=== PATIENT | female | born 1985 | race Caucasian/White ===

== ENCOUNTER 2023-06-17 14:36 | Emergency (ER) | payer OTHER, SELFPAY ==
--- NOTE | ~2023-06-17 | CT_ITS ---
EXAMINATION: CT KNEE WITHOUT CONTRAST, RIGHT CLINICAL INFORMATION: Assess fracture COMPARISON: Radiographs the same day TECHNIQUE: Multiplanar multisequence CT scan of the right knee are multiplanar reconstructions. This CT examination was performed using dose optimization techniques as appropriate, variously including the following: *Automated exposure control *Adjustment of mA and/or kV according to patient size (this includes techniques or standardized protocols for targeted exams where dose is matched to indication/reason for exam; i.e. extremities or head) *Use of iterative reconstruction technique DLP: 148 mGy-cm FINDINGS: CT confirms the presence of joint effusion. In fact there is likely hemarthrosis on this supine exam. Patellofemoral joint intact. There is a avulsion-type fracture of the tibial spine and the lateral tibial plateau with minimal comminution and mild displacement. No fracture fragments seen within the joint space. No focal bony lesion and no other focal lesion. Minor patella spurring. CT/CT knee RT wo IV con IMPRESSION: Avulsion fracture of the tibial spine extending to the lateral tibial plateau as above. MRI is recommended to specifically assess the ACL and other soft tissue structures.
--- NOTE | ~2023-06-17 | XR_ITS ---
EXAMINATION: XR KNEE, RIGHT CLINICAL INFORMATION: Twisting injury COMPARISON: None available. TECHNIQUE: Four views of the right knee. FINDINGS: Joint effusion is present. There is a subtle deformity of the tibia extending from the lateral tibial spine to the lateral tibial plateau. This is suspicious for an avulsion type fracture presumed acute. No measurable displacement. No other deformity. XR/XR knee RT 3V IMPRESSION: Joint effusion. Suspect an avulsion type fracture of the tibia as above.
[2023-06-17 15:18] VITALS: BP 150/93; PULSE 103; RESP 19; TEMP 36.6; O2SAT 97; BMI 35.4
--- NOTE | 2023-06-17 15:20 | ED.LOWEXIN ---
HPI - Extremity Injury (Lower) General Chief Complaint: General Medical Stated Complaint: Right Knee pain Time Seen by Provider: 06/17/23 18:10 Source: patient and family Mode of arrival: wheelchair Limitations: no limitations History of Present Illness HPI Narrative: 38-year-old female previously healthy here with complaints of right knee pain after twisting injury last night. Patient denies any head strike or loss of consciousness. No AC therapy use. Patient denies any associated weakness, numbness or tingling of the extremity. Related Data Previous Rx's Medication Instructions Recorded ibuprofen 800 mg tablet 800 mg PO Q8H PRN pain #30 tabs 06/17/23 oxycodone 5 mg tablet 5 mg PO Q8H PRN pain #9 tabs 06/17/23 Allergies Allergy/AdvReac Type Severity Reaction Status Date / Time ketorolac [From Toradol] Allergy Swelling Verified 06/17/23 15:17 Review of Systems Review of Systems: Yes all other systems are reviewed and are negative Constitutional: Constitutional: Reports no additional constitutional complaints, Denies body ache(s), Denies chills, Denies fever(s), Denies headache(s) and Denies weakness Eyes: Eyes: Reports no additional eye complaints and Denies change in vision ENT: Reports system reviewed and no additional complaints, except as documented, Denies dizziness, Denies headache(s), Denies nasal congestion, Denies nasal discharge and Denies neck pain Cardiovascular: Cardiovascular: Reports no additional cardiovascular complaints, Denies chest pain, Denies leg edema and Denies dyspnea Respiratory: Respiratory: Reports no additional respiratory complaints, Denies cough and Denies dyspnea Gastrointestinal: Gastrointestinal: Reports no additional gastrointestinal complaints, Denies abdominal pain, Denies diarrhea, Denies nausea and Denies vomiting Genitourinary: Genitourinary: Reports no additional female genitourinary complaints and Denies urinary incontinence Musculoskeletal: Musculoskeletal: Reports no additional musculoskeletal complaints, Denies back pain, Reports arthralgias, Denies joint swelling, Denies neck pain, Denies numbness and Denies tingling Integumentary/Breasts: Skin/Breast: Reports system reviewed and no additional complaints, except as docu and Denies rash Neurologic: Reports system reviewed and no additional complaints, except as documented, Denies Abnormal speech present, Denies dizziness, Denies headache(s), Denies numbness, Denies tingling and Denies weakness PMFSH Past Medical History Attestation statement: The following information was validated with the patient. Source: old records reviewed and nursing notes reviewed Social History Social History Advance Directives: No Advance Directives Information Provided: No Physical Exam Vital Signs: Vital Signs: Last Vital Signs Temp 97.3 F 06/17/23 18:27 Pulse 106 H 06/17/23 18:27 Resp 18 06/17/23 18:27 BP 158/89 H 06/17/23 18:27 Pulse Ox 96 06/17/23 18:27 O2 Del Method Room Air 06/17/23 18:27 BMI result Body Mass Index 35.4 Const: General: cooperative, healthy appearing, comfortable and no acute distress Orientation/consciousness: patient oriented x3 Limitations: no limitations HEENT: Head: Yes normal to inspection Ears: hearing grossly normal bilaterally General nose exam: Normal external nose present Face and sinus: Yes normal facial exam Mouth: Normal oral and palatal mucosa present Throat: Yes posterior oropharynx normal Eyes: General: appearance normal, both eyes and all related structures Pupils: Equal, round and reactive pupils present Neck: Neck: Yes normal visual inspection Chest: Chest palpation & inspection: normal inspection of the chest Resp: Effort & Inspection: normal respiratory effort Auscultation: clear to auscultation bilaterally Cardio: Rate: regular rate Rhythm: regular rhythm Peripheral pulses: Peripheral pulses 2+ throughout GI: Inspection: Yes normal to inspection Palpation (GI): Soft to palpation and nontender Auscultation: normal bowel sounds Back/Spine/Pelvis: Thoracic/Lumbar Spine: thoracic and lumbar spine normal to inspection Skin: General skin exam: no rashes or lesions noted Neuro: General: patient oriented x3, no focal motor deficits and normal sensation to monofilament Cranial nerves: Yes Equal, round and reactive pupils present Cognition (Neuro): normal cognition Speech: No Abnormal speech present Gait exam (Neuro): Normal gait present Motor exam (neuro): 5/5 motor strength present throughout Extrem: Other: Pain on palpation over the proximal tibia and medial joint line with limited flexion due to pain. There is 2+ DP and PT pulses distally. Full active and passive range of motion of the ankle and foot. Normal distal sensation. General: Yes normal to inspection Course Course Course Narrative: This is a rapid medical exam. Defer additional HPI, ROS, PE to primary provider. [age] female who right knee pain after twisting injury. Will check x-rays. VSS Reevaluation(s) Reevaluation #1: 1730-x-ray is concerning for lateral tibial plateau fracture. Spoke to orthopedic (Erik) who recommended obtaining CT knee while patient is here in the emergency room. Medications Administered Discontinued Medications Generic Name Dose Route Start Last Admin Trade Name Prasad PRN Reason Stop Dose Admin Ibuprofen 800 mg 06/17/23 18:13 06/17/23 18:29 Ibuprofen 800 Mg Tablet PO 06/17/23 18:14 800 mg ONCE ONE Administration Medical Decision Making Medical Decision Making [facility] Narrative: 38-year-old female previously healthy here with complaints of right knee pain after twisting injury last night. Patient denies any head strike or loss of consciousness. No AC therapy use. Patient denies any associated weakness, numbness or tingling of the extremity. Pain on palpation over the proximal tibia and medial joint line with limited flexion due to pain. There is 2+ DP and PT pulses distally. Full active and passive range of motion of the ankle and foot. Normal distal sensation. Will obtain x-ray Differential Diagnosis Differential Diagnoses: The differential diagnosis associated with the presentation includes Fracture, contusion, sprain, strain, dislocation Low suspicion for vascular injury Admission/Observation Consideration of admission/observation: Escalation of care including admission/observation considered Low suspicion for vascular injury, complex fracture or dislocation requiring advanced imaging, urgent orthopedic consultation Consult Healthcare Provider Management of the patient was discussed with: [employer] Supervisor X-ray show concern for tibial plateau fracture. Spoke to Orthopedics who recommended CT of the knee while in the emergency room Lab Data [facility] Lab Attestation statement: I reviewed the patient's lab results. Labs: Lab Results 06/17/23 Range/Units 18:28 Urine Test NEGATIVE (NEGATIVE) Independent Interpretation I performed an independent interpretation of an: Plain X-Ray and CT Scan Interpretation: I independently reviewed the x-ray and the CT scan agree with the radiology report Radiology Impression Discussion of test interpretation with radiology: I have reviewed the radiologist's reading. Radiologist Impression: Launch?Image [address] [address] XRay Report Signed Patient: Dianne Paredes MR#: [id number] : 1985 Acct:[id number] Age/Sex: 38 / F ADM Date: 06/17/23 Loc: HO.ED Attending Dr: Ordering Physician: Maira White NP Date of Service: 06/17/23 Procedure(s): XR knee RT 3V Accession Number(s): [id number] cc: Physician,Unknown ; Maira White NP~ EXAMINATION: XR KNEE, RIGHT CLINICAL INFORMATION: Twisting injury COMPARISON: None available. TECHNIQUE: Four views of the right knee. FINDINGS: Joint effusion is present. There is a subtle deformity of the tibia extending from the lateral tibial spine to the lateral tibial plateau. This is suspicious for an avulsion type fracture presumed acute. No measurable displacement. No other deformity. XR/XR knee RT 3V IMPRESSION: Joint effusion. Suspect an avulsion type fracture of the tibia as above. [place] [id number] CT Scan Report Signed Patient: Dianne Paredes MR#: [id number] : 1985 Acct:[id number] Age/Sex: 38 / F ADM Date: 06/17/23 Loc: HO.ED Attending Dr: Ordering Physician: Maira White NP Date of Service: 06/17/23 Procedure(s): CT knee RT wo IV con Accession Number(s): [id number] cc: Physician,Unknown ; Maira White NP~ EXAMINATION: CT KNEE WITHOUT CONTRAST, RIGHT CLINICAL INFORMATION: Assess fracture COMPARISON: Radiographs the same day TECHNIQUE: Multiplanar multisequence CT scan of the right knee are multiplanar reconstructions. This CT examination was performed using dose optimization techniques as appropriate, variously including the following: *Automated exposure control *Adjustment of mA and/or kV according to patient size (this includes techniques or standardized protocols for targeted exams where dose is matched to indication/reason for exam; i.e. extremities or head) *Use of iterative reconstruction technique DLP: 148 mGy-cm FINDINGS: CT confirms the presence of joint effusion. In fact there is likely hemarthrosis on this supine exam. Patellofemoral joint intact. There is a avulsion-type fracture of the tibial spine and the lateral tibial plateau with minimal comminution and mild displacement. No fracture fragments seen within the joint space. No focal bony lesion and no other focal lesion. Minor patella spurring. CT/CT knee RT wo IV con IMPRESSION: Avulsion fracture of the tibial spine extending to the lateral tibial plateau as above. MRI is recommended to specifically assess the ACL and other soft tissue structures. Independent Historian Clinical information obtained from an independent historian. History obtained from or confirmed by: Friend Procedures Orthopedic Splinting/Casting Injury #1: Side: right Lower Extremity Injury Location: knee Lower Extremity Immobilizer: knee immobilizer Other Orthopedic Equipment: crutches Discharge Plan Discharge Clinical Impression: Closed fracture of tibial plateau Patient Disposition: Home, Self-Care Instructions: Leg Fracture (ED), Crutch Instructions (ED), R.I.C.E. Treatment (ED) Additional Instructions: Call orthopedics tomorrow Rest, ice, elevation, no weight bearing Prescriptions: New ibuprofen 800 mg tablet 800 mg PO Q8H PRN (Reason: pain) Qty: 30 0RF oxycodone 5 mg tablet 5 mg PO Q8H PRN (Reason: pain) Qty: 9 0RF Rx Instructions: Partial Fill upon patient request. Referrals: [facility] [Provider Group] - 2 days
[2023-06-17 18:27] VITALS: BP 158/89; PULSE 106; RESP 18; TEMP 36.3; O2SAT 96
[2023-06-17] MEDS: Ibuprofen 800 MG TABLET PO (18:29)
[2023-06-17 18:38] LABS: UPreg QC Valid YES; Urine Pregnancy NEGATIVE (NEGATIVE)
== END 2023-06-17 22:07 | disposition home or self-care (01) ==
PROVIDERS: Nurse Practitioner Family; Emergency Provider Emergency Medicine
DX: S82.141A Displaced bicondylar fracture of right tibia, initial encounter for closed fracture (principal); M25.561 Pain in right knee; X50.1XXA Overexertion from prolonged static or awkward postures, initial encounter; Y93.9 Activity, unspecified; Y92.9 Unspecified place or not applicable; Y99.8 Other external cause status
CPT/HCPCS: 29505; 73562; 73700; 81025; 99283; 99284